=== PATIENT | female | born 1965 | race African-American/Black ===

== ENCOUNTER 2017-10-09 21:28 | Emergency (ER) | payer OTHER ==
[2017-10-09 21:35] VITALS: BP 151/83; PULSE 86; TEMP 98.5; BMI 31.6
[2017-10-09] MEDS ORDERED: IBUPROFEN 400 MG TABLET (FP) PO ONE ×2 (22:11→22:14)
--- NOTE | 2017-10-09 22:11 | PDOC ---
History of Present Illness - General Chief Complaint: Injury Stated Complaint: FALL INJURY Time Seen by Provider: 10/09/17 22:03 History Source: Patient Exam Limitations: No Limitations - History of Present Illness Initial Comments: 10/09/17 22:20 Patient is a 52-year-old female with no past medical history who presents to the emergency department today [place]. Patient states she was wearing the patch the train when she fell down the last 2 steps of the stairwell to the platform. Patient states that she was able to grab onto the railings on either side. Her right leg then fell underneath her on the steps. Patient denies hitting her head, loss of consciousness, neck pain or back pain. She states that now her right leg is sore and tender to the touch. Patient states that she is able to walk however it is painful to do so. Past History - Travel Traveled outside of the country in the last 30 days: No Close contact w/someone who was outside of country & ill: No - Past Medical History Allergies/Adverse Reactions: Allergies Allergy/AdvReac Type Severity Reaction Status Date / Time sulfamethoxazole Allergy Verified 10/09/17 21:35 [From Bactrim] trimethoprim [From Bactrim] Allergy Verified 10/09/17 21:35 Home Medications: Ambulatory Orders NK [No Known Home Medication] 10/09/17 COPD: No - Suicide/Smoking/Psychosocial Hx Smoking History: Never smoked Have you smoked in the past 12 months: No Information on smoking cessation initiated: No Hx Alcohol Use: No Drug/Substance Use Hx: No Substance Use Type: None Review of Systems - Review of Systems Able to Perform ROS?: Yes Comments:: 10/09/17 22:21 CONSTITUTIONAL: Absent: fever, chills, diaphoresis, generalized weakness, malaise, loss of appetite HEENT: Absent: rhinorrhea, nasal congestion, throat pain, throat swelling, difficulty swallowing, mouth swelling, ear pain, eye pain, visual Changes CARDIOVASCULAR: Absent: chest pain, loss of consciousness, palpitations, irregular heart rate, peripheral edema RESPIRATORY: Absent: cough, shortness of breath, dyspnea with exertion, orthopnea, wheezing, stridor, hemoptysis GASTROINTESTINAL: Absent: abdominal pain, abdominal distension, nausea, vomiting, diarrhea, constipation, melena, hematochezia GENITOURINARY: Absent: dysuria, frequency, urgency, hesitancy, hematuria, flank pain, genital pain MUSCULOSKELETAL: Present: R knee pain Absent: myalgia, arthralgia, joint swelling SKIN: Present: abrasions to R and L knees Absent: rash, itching, pallor HEMATOLOGIC/IMMUNOLOGIC: Absent: easy bleeding, easy bruising, lymphadenopathy, frequent infections ENDOCRINE: Absent: unexplained weight gain, unexplained weight loss, heat intolerance, cold intolerance NEUROLOGIC: Absent: headache, focal weakness or paresthesias, dizziness, unsteady gait, seizure, mental status changes, bladder or bowel incontinence PSYCHIATRIC: Absent: anxiety, depression, suicidal or homicidal ideation, hallucinations. Is the patient limited [place]ish proficient: No *Physical Exam - Vital Signs Last Vital Signs Temp Pulse Resp BP Pulse Ox 98.5 F 86 18 151/83 100 10/09/17 21:29 10/09/17 21:29 10/09/17 21:29 10/09/17 21:29 10/09/17 21:29 - Physical Exam Comments: 10/09/17 22:22 GENERAL: Well developed, well nourished. Awake and alert. No acute distress. HEENT: Normocephalic, atraumatic. PERRLA, EOMI. No conjunctival pallor. Sclera are non- icteric. Moist mucous membranes. Oropharynx is clear. NECK: Supple. Full ROM. No JVD. Carotid pulses 2+ and symmetric, without bruits. No thyromegaly. No lymphadenopathy. CARDIOVASCULAR: Regular rate and rhythm. No murmurs, rubs, or gallops. Distal pulses are 2+ and symmetric. PULMONARY: No evidence of respiratory distress. Lungs clear to auscultation bilaterally. No wheezing, rales or rhonchi. ABDOMINAL: Soft. Non-tender. Non-distended. No rebound or guarding. No organomegaly. Normoactive bowel sounds. MUSCULOSKELETAL Normal range of motion at all joints. TTP of R superior tibia. No bony deformities. No CVA tenderness. EXTREMITIES: No cyanosis. No clubbing. No edema. No calf tenderness. SKIN: Three small approximately 1cm round abrasions to R knee. One 0.5cm round abrasion to L knee. Warm and dry. Normal capillary refill. No rashes. No jaundice. NEUROLOGICAL: Alert, awake, appropriate. Cranial nerves 2-12 intact. No deficits to light touch and temperature in face, upper extremities and lower extremities. No motor deficits in the in face, upper extremities and lower extremities. Normoreflexic in the upper and lower extremities. Normal speech. Toes are down- going bilaterally. Gait is normal without ataxia. PSYCHIATRIC: Cooperative. Good eye contact. Appropriate mood and affect. ED Treatment Course - RADIOLOGY Radiology Studies Ordered: Category Date Time Status KNEE 3 POS-RIGHT [RAD] Stat Radiology 10/09/17 22:11 Ordered Medical Decision Making - Medical Decision Making 10/09/17 22:23 Patient is a 52-year-old female no past medical history who complains of right knee and villan[place] pain after falling at the train station. No LOC, head trauma. Tenderness to palpation of the right superior tibia. We will rule out rapture at this time. We'll also give ibuprofen for pain and dress the abrasions. Reevaluate 10/09/17 22:48 Wet read: R knee with loss of joints space to the lateral portion of the knee. No obvious fractures of the superior tibia, fibula or patella. Will d/c home with supportive care and ortho follow up. *DC/Admit/Observation/Transfer Diagnosis at time of Disposition: Knee pain, right Qualifiers: Chronicity: acute Qualified Code(s): M25.561 - Pain in right knee Fall Qualifiers: Encounter type: initial encounter Qualified Code(s): W19.XXXA - Unspecified fall, initial encounter - Discharge Dispostion Disposition: HOME Condition at time of disposition: Good Admit: No - Referrals Referrals: Abdirizak Cerda MD [Staff Physician] - - Patient Instructions Printed Discharge Instructions: DI for Knee Pain Additional Instructions: You felt today. Your x-ray was negative for broken bones. You have scrapes and some swelling to your right knee. Please keep the leg elevated to help reduce swelling and pain. You may take ibuprofen 800 mg 3 times a day not to exceed 3000 mg to help with your pain. Please ice the area for 20 minute intervals 5 times a day. Please follow-up with your primary care doctor or orthopedics if your symptoms are not resolving. A referral has been provided for you,. Return to the emergency department for worsening pain, numbness and tingling in your leg or foot, weakness, change in the Moustapha walk, or any changes in her symptoms. - Post Discharge Activity Forms/Work/School Notes: Back to Work
== END 2017-10-09 22:56 | disposition home or self-care (01) ==
LOC: JERFT 21:28
DX: M25.561 Pain in right knee (principal); W10.8XXA Fall (on) (from) other stairs and steps, initial encounter; Y93.89 Activity, other specified; Y92.522 Railway station as the place of occurrence of the external cause; Y99.8 Other external cause status
CPT/HCPCS: 73562-TC-RT; 99281-25